=== PATIENT | male | born 2000 | race Caucasian/White ===

== ENCOUNTER 2020-11-16 09:56 | Emergency (ER) | payer OTHER ==
[2020-11-16 10:20] VITALS: PULSE 75; TEMP 97.9; BMI 19.5
[2020-11-16] MEDS ORDERED: SODIUM CHLORIDE 0.9% 1000 ML INFUS.BAG IV ONE (10:49)
[2020-11-16 11:07] LABS: BASO % 0.6 % (0-2.0); EOS % 4.5 % (0-4.5); HEMATOCRIT 42.2 % (35.4-49); HEMOGLOBIN 14.8 GM/dL (11.7-16.9); LYMPH % 34.3 % (8-40); MCH 28.9 pg (25.7-33.7); MCHC 35.1 g/dl (32.0-35.9); MEAN CELL VOLUME 82.2 fl (80-96); MEAN PLT VOLUME 8.2 fl (7.5-11.1); NEUT % 48.6 % (42.8-82.8); PLATELET COUNT 245 K/MM3 (134-434); RBC 5.14 M/mm3 (4.00-5.60); RDW 12.8 % (11.9-15.9); WHITE BLOOD COUNT 6.3 K/mm3 (4.0-10.0)
[2020-11-16 11:32] LABS: POTASSIUM 3.7 mmol/L (3.5-5.1)
[2020-11-16 11:34] LABS: ALBUMIN 4.4 g/dl (3.4-5.0)
[2020-11-16 11:36] LABS: BLOOD UREA NITROGEN 12.8 mg/dL (7-18); CALCIUM 9.5 mg/dL (8.5-10.1)
[2020-11-16 11:41] LABS: BILIRUBIN,TOTAL 0.5 mg/dL (0.2-1)
[2020-11-16 11:42] LABS: TOT PROT 7.5 g/dl (6.4-8.2)
[2020-11-16 13:24] VITALS: BP 105/65
== END 2020-11-16 13:47 | disposition home or self-care (01) ==
LOC: JER 09:56
PROC: 0HQ0XZZ Repair Scalp Skin, External Approach (ICD-10-PCS; principal; 2020-11-16)
DX: S01.01XA Laceration without foreign body of scalp, initial encounter (principal); R55 Syncope and collapse
CPT/HCPCS: 36415; 80053; 82962; 85025; 93005; 93010; 99284-25